=== PATIENT | female | born 1990 | race African-American/Black ===

== ENCOUNTER 2017-03-27 19:30 | Emergency (ER) | payer OTHER, SELFPAY ==
[2017-03-27] MEDS ORDERED: Acetaminophen 500 MG TAB ONE (19:55)
== END 2017-03-27 20:00 | disposition home or self-care (01) ==
LOC: NAV ERS 19:30
DX: J11.1 Influenza due to unidentified influenza virus with other respiratory manifestations (principal); F41.9 Anxiety disorder, unspecified
CPT/HCPCS: 99283

== ENCOUNTER 2018-05-02 23:39 | Emergency (ER) | payer OTHER, SELFPAY | END 2018-05-03 00:10 | disposition home or self-care (01) | LOC: NAV ERS 23:39 | DX: R07.1 Chest pain on breathing (principal); F32.9 Major depressive disorder, single episode, unspecified; K21.9 Gastro-esophageal reflux disease without esophagitis | CPT/HCPCS: 93005 ==

== ENCOUNTER 2019-03-12 19:10 | Emergency (ER) | payer OTHER ==
[2019-03-12] MEDS ORDERED: Ibuprofen 200 MG TAB ONE (19:50)
[2019-03-12 20:22] LABS: Bilirubin Small (Negative); Blood, Urine Negative (Negative); Clarity Clear (Clear); Glucose, Urine (Dipstick) Negative (Negative); Leukocyte Negative (Negative); Nitrite Positive (Negative); Protein, Urine (Dipstick) 30 mg/dL (Neg-Trace)
[2019-03-12 20:24] LABS: Bacteria/HPF 2+ HPF (None Seen); RBC/HPF None Seen HPF (0-3)
[2019-03-12] MEDS ORDERED: Oseltamivir 75 MG CAP ONE (20:56)
[2019-03-12] MEDS ORDERED: Sulfameth/Trimethoprim DS 800-160mg TAB ONE (20:56)
== END 2019-03-12 21:08 | disposition home or self-care (01) ==
LOC: NAV ERS 19:10
DX: J10.1 Influenza due to other identified influenza virus with other respiratory manifestations (principal); N39.0 Urinary tract infection, site not specified; K21.9 Gastro-esophageal reflux disease without esophagitis; F32.9 Major depressive disorder, single episode, unspecified; Z79.899 Other long term (current) drug therapy
CPT/HCPCS: 81003; 81015; 87081; 87086; 87430; 87804; 99283

== ENCOUNTER 2020-08-11 16:34 | Emergency (ER) | payer OTHER ==
[2020-08-11] MEDS ORDERED: Ibuprofen 800 MG TAB ONE (16:43)
[2020-08-11] MEDS ORDERED: Sodium Chloride 0.9% 1,000 ML ONE (16:50)
[2020-08-11 17:32] LABS: #Monocytes 0.2 thou/uL (0.11-0.59); #Neutrophils 3.9 thou/uL (1.40-6.50); %Basophils 0.2 % (0.0-1.0); %Lymphocytes 19.4 % (21.0-51.0); %Monocytes 3.1 % (0.0-10.0); %Neutrophils 77.2 % (42.0-75.0); Hemoglobin 12.5 g/dL (12.0-16.0); Mean Corpuscular HGB CONC 30.1 g/dL (32.0-36.0); Mean Corpuscular Hemoglobin 28.7 pg (27.0-31.0); Mean Corpuscular Volume 95.4 fL (78.0-98.0); Mean Platelet Volume 7.6 fL (7.4-10.4); Platelet Count 238 thou/uL (130-400); RBC Distribution Width 13.3 % (11.5-14.5); Red Blood Cell (RBC) Count 4.35 mill/uL (4.20-5.40)
[2020-08-11 17:33] LABS: ALT (SGPT) 31 U/L (8-55); AST (SGOT) 37 U/L (5-34); Albumin 3.9 g/dL (3.5-5.0); Alkaline Phosphatase 69 U/L (40-110); Anion Gap 14 mmol/L (10-20); BUN (Urea Nitrogen) 8 mg/dL (7.0-18.7); Bilirubin, Total 0.6 mg/dL (0.2-1.2); Calc. Creatinine Clearance 0 mL/min (70-130); Carbon Dioxide 23 mmol/L (22-29); Chloride 102 mmol/L (98-107); Globulin 4.1 g/dL (2.4-3.5); Glucose 120 mg/dL (70-105); Sodium 136 mmol/L (136-145)
[2020-08-11 18:23] LABS: Potassium 2.6 mmol/L (3.5-5.1)
[2020-08-11] MEDS ORDERED: Azithromycin 250 MG TAB ONE (18:27)
[2020-08-11] MEDS ORDERED: Potassium Chloride 20 MEQ TAB ONE (18:29)
[2020-08-12 16:09] LABS: SARS-CoV-2 PCR by NAA DETECTED (NotDetected)
== END 2020-08-11 18:33 | disposition home or self-care (01) ==
LOC: NAV ERS 16:34
DX: U07.1 COVID-19 (principal); J12.82 Pneumonia due to coronavirus disease 2019; E87.6 Hypokalemia; K21.9 Gastro-esophageal reflux disease without esophagitis; Z79.899 Other long term (current) drug therapy
CPT/HCPCS: 36415; 71045; 80053; 83605; 85025; 87040; 87635; J7050; U0003; U0005

== ENCOUNTER 2024-02-08 18:19 | Emergency (ER) | payer OTHER, SELFPAY | END 2024-02-08 18:55 | disposition home or self-care (01) | LOC: NAV ERS 18:19 | DX: M17.0 Bilateral primary osteoarthritis of knee (principal) | CPT/HCPCS: 99283 ==

== ENCOUNTER 2024-03-14 21:22 | Emergency (ER) | payer SELFPAY ==
[2024-03-14] MEDS ORDERED: Acetaminophen 325 MG TAB ONE (22:03)
[2024-03-14] MEDS ORDERED: Boostrix 0.5 ML (Tdap) VIAL (>/=7 yrs of age) ONE (22:03)
== END 2024-03-15 00:01 | disposition home or self-care (01) ==
LOC: NAV ERS 21:22
DX: S16.1XXA Strain of muscle, fascia and tendon at neck level, initial encounter (principal); S39.012A Strain of muscle, fascia and tendon of lower back, initial encounter; V89.2XXA Person injured in unspecified motor-vehicle accident, traffic, initial encounter
CPT/HCPCS: 72100; 72125; 90471; 90715